=== PATIENT | female | born 1995 | race Hispanic/Latino ===

== ENCOUNTER 2022-07-31 17:28 | Emergency (ER) | payer OTHER ==
--- OUTSIDE RECORDS SUMMARY | 2022-07-31 17:31 | XMS REPORT | Continuity of Care Document ---
:1995 Author Organization [facility] t Address [address] [place] [address] Care Team Providers Name Role Phone Louisa Powell Primary Care Physician [phone] Yusra Brizuela Attending Clinician Problems Condition Condition Condition Status Onset Resolution Last Treating Co mments Source Name Details Category Date Date Treatment Clinician Date Contracept Contracept Disease Active U nivers veronica veronica 8-26 ity of management management [place] [facility] History of History of Disease Active U nivers anemia anemia 3-18 ity of 00:00: Medical Branch Nexplanon Nexplanon Disease Active Overview: Univers in place in place 3-18 Formattin ity of 00:00: g of this 00 note Medical might be Branch different from the original. Inserted 08/06/18 BMI BMI Disease Active 2019- Univers 37.0-37.9, 37.0-37.9, 3-18 it y of adult adult 00:00: [place] [facility] History of History of Disease Active U nivers gestationa gestationa 1-14 it y of l diabetes l diabetes 00:00: [place] [facility] Allergies, Adverse Reactions, Alerts Allergy Allergy Status Severity Reaction(s) Onset Inactive Treating Comm ents Source Name Type Date Date Clinician Penicill Propensi Active Hives Univer s ins ty to 4-08 ity of adverse 00:00: [place] reaction 00 Medical s Branch PENICILL Drug Active Hives Univers INS Class 4-08 ity of 00:00: [place] 00 [facility] Social History Social Habit Start Date Stop Date Quantity Comments Source Exposure to Not sure [facility] SARS-CoV-2 (event) Medica l Branch Alcohol intake 2021-02-13 2021-02-13 0 [facility]d [facility] 00:[facility] 00:00:00 Medical Branch Tobacco use and 2013-08-07 2013-08-07 Never used [facility] exposure 00:00:00 00:00:00 Medical Branch Sex Assigned At [address] [facility] [place] [place] 00:00:00 00:00:00 Medical Branch Smoking Status Start Date Stop Date Source Never smoker [facility] Medications Ordered Filled Start Stop Current Ordering Indication Dosage Frequency Signature Comments Components Source Medication Medication Date Date Medication? Clinician (SIG) Name Name lidocaine 2020- 5mL 5 mL, Univer s 1% 02-13 Infiltrati ity of (XYLOCAINE) 17:45: 16:43 on, ONCE, [place] 10 mg/mL (1 00 :00 1 dose, On Me dical %) Sat Branch injection 5 02/13/21 at mL 1245, RUKHSANA ferrous 2017-05 Yes 325mg Take 1 Univers sulfate 325 2-16 tablet by ity of mg (65 mg 00:00: mouth 2 [place] iron) 00 (two) Medical tablet times Branch daily. ibuprofen 2017-05 Yes 600mg Take 1 Unive rs 600 mg 2-16 tablet by ity of tablet 00:00: mouth [place] 00 every 6 Medical (six) Branch hours as needed for Pain (scale 1-3) or Pain (scale 4-6) (Pain). Take with food or milk. Immunizations Ordered Filled Immunization Date Status Comments Sourc e Immunization Name Name Td 2021-02-13 Completed University of 00:00:00 [facility] MMR 2018-06-04 Completed University of 00:00:00 [facility] TDAP 2018-03-08 Completed University of 00:00:00 [facility] Influenza Virus 2018-03-[address] [facility] [place] [place] Vaccine Quad .5 mL 00:00:00 [facility] IM 6+ MO Branch HPV 2009-07-23 Completed University of 00:00:00 [facility] HPV 2009-03-05 Completed University of 00:00:00 [facility] MMR 2009-02-03 Completed University of 00:00:00 [facility] HPV 2009-01-05 Completed University of 00:00:00 [facility] Tetanus/Diptheria 2006-05-22 Completed Univers ity of 00:00:00 [facility] Vital Signs Vital Name Observation Time Observation Value Comments Source Systolic blood 2021-02-13 16:29:01 143 mm[Hg] Univer sity of pressure [facility] Diastolic blood 2021-02-13 16:29:01 96 mm[Hg] Unive rsity of pressure [facility] Heart rate 2021-02-13 16:29:01 93 /min [facility] Body temperature 2021-02-13 16:29:01 37.56 Gissell [facility] Res[facility] rate 2021-02-13 16:29:01 17 /min [facility] Body weight 2021-02-13 16:20:00 89.812 kg [facility] BMI 2021-02-13 16:20:00 37.41 kg/m2 [facility] Oxygen saturation in 2021-02-13 16:20:00 97 /min [facility] Arterial blood by [facility] Pulse oximetry Branch Procedures Procedure Date / Time Performed Performing Clinician Sourc e XR HAND 3+ VW RIGHT 2021-02-13 16:37:57 Miguel Ghosh [facility] Encounters Start End Encounter Admission Attending Care Care Encounter Source Date/Time Date/Time Type Type Clinicians Facility Department ID 2021-03-[address] [facility] [id number] [facility] 2021-02-13 2021-02-13 [facility] [id number] [facility] 11:23:00 13:32:00 Yusra Miller [id number] i ty [facility] [id number] [facility] [id number] [facility] 084 Branch Results Test Description Test Time Test Comments Results Result Comments Source PAP TEST, THINPREP, IMAGED 2021-11-16 18:12:47 Test Item Value Reference Range Interpretation Comme nts SOURCE: (test code = Cervical/Endocervical 8001) SLIDES: (test code = 1 8011) LMP: (test code = 10/29/2021 8021) SPECIMEN ADEQUACY: (NOTE) Malinda fernandez for (test code = 93569) evaluati on. Endocervical cells/transform ation zone component not i dentified. INTERPRETATION: NILM/NO EPITH. ABNORMALITY;SEE (test code = 79251) BELOW -------- NEGATIVE FOR INTRAEPITHE LIAL LESION OR MALIGNANCY ( NILM) -- OTHER COMMENTS: (NOTE) Shift in toshia ra suggestive of (test code = 8081) bacterial vaginosis. PRESS FEEDER: LION Huff(ASCP) (test code = 8101) LOCATION: (test code (NOTE) Specime ns processed and = 28271) interpreted at [facility], [address] [place] [address], Phone: , CLIA: [id number] CPT: (test code = (NOTE) 54588 UNLE SS OTHERWISE 8140) INDICATED, COMP UTER AIDED AND CYTOTECHNOL OGIST SCREENING PERFO RMED. The Pap test is a scree anselmo test with an inheren t, but low probability of error. Your patient should be reminded to consult you immediately if she experien catrachita any suspicious sign s or symptoms, regar dless of her Pap test result . An alternate repor t format containing imag es or consolidated pr ior Pap history is avai labmilo as applicable. UNL ESS OTHERWISE INDICATED, ALL TESTING PERFORMED [facility] PATHOLOGY [facility]. [address] [place] [address] LABORATOR Y DIRECTOR: DEAN OLMEDO M.D. CLIA NUMBER [id number] CAP ACCREDITATION N O. [id number] CT/NG, TMA, [id number] 18:07:34 Test Item Value Reference Range Interpretation Comments GONORRHEA, TMA NEGATIVE NEGATIVE Assay method ology is (test code = nucleic acid am plification 28571) by transcriptio n mediated amplification ( TMA) utilizing the A ptima Combo 2 Assay. CHLAMYDIA, TMA NEGATIVE NEGATIVE Assay method ology is (test code = nucleic acid am plification 99176) by transcriptio n mediated amplification ( TMA) utilizing the A ptima Combo 2 Assay. VAGINAL PATHOGENS DNA [id number] 09:48:32 Test Item Value Reference Range Interpretation Comments DANIELLE SPECIES (test code = 98878) NEGATIVE NEGATIVE G. VAGINALIS (test code = 79688) POSITIVE NEGATIVE A T. VAGINALIS (test code = 10281) NEGATIVE NEGATIVE HIV 1/2 4TH GEN, RFLX [id number] 03:19:15 Test Item Value Reference Range Interpretation Comments HIV 1/2 4TH GEN, RFLX CONF (test NON-REACTIVE NON-REACTIVE code = 3514) HEPATITIS PANEL, [id number] 03:19:15 Test Item Value Reference Range Interpretation Comments HEPATITIS A IgM (test NON-REACTIVE NON-REACTIVE code = 35134) HEPATITIS B CORE IgM NON-REACTIVE NON-REACTIVE (test code = 4644) HEPATITIS B SURF AG NON-REACTIVE NON-REACTIVE (test code = 2739) HEPATITIS C ANTIBODY NON-REACTIVE NON-REACTIVE (test code = 4675) INTERPRETATION (NOTE) Hepatitis A HEPATITIS A: (test code sero logy shows no = 2552) evidence of acu te hepatitis A. INTERPRETATION (NOTE) Hepatitis B HEPATITIS B: (test code sero logy shows no = 08018) evidence of acu te hepatitis B and no indication of exposure to hepatitis B vir us in the previous german eight months. INTERPRETATION (NOTE) Hepatitis C HEPATITIS C: (test code sero logy shows no = 75317) evidence of exposure to hepatitisC viru s at this time. I t can take up to 12 months after exposure tothe hepatitis C vir us for antibodies to become detectab le in the blood in certain patient s. [id number] 22:40:41 Test Item Value Reference Range Interpretation Comments RPR RESULT (test code = NON-REACTIVE NON-REACTIVE 3501) RPR TITER (test code = 3500) NOT INDIC. TITER NOT INDIC. LIPID [id number] 03:30:38 Test Item Value Reference Range Interpretation Comments CHOLESTEROL (test 144 MG/DL <200 code = 2210) TRIGLYCERIDES (test 246 MG/DL <150 H code = 2232) HDL CHOLESTEROL (test 32 MG/DL >39 L code = 2220) CALC LDL CHOL (test 78 MG/DL <100 NOTE: C ALCULATED LDL code = 2237) IS BASED ON JAN-ZARATE METHOD WHICHINCLUDES ADJUSTABLE TRIGLYCERIDE:VL DL CHOLESTEROL RAT IO.THIS FACTOR VARIES B Y MEASURED TRIGLY CERIDE AND NON-HDLCHOL ESTEROL CONCENTRATIONS WITH INCREASED CALCU LATED LDL SEENIN HIGH ER TRIGLYCERIDE OR LOWER NON-HDL SPECIME NS. FOR MOREINFORMATION , SEE CLIENT ANNOUNCE MENT AT [email or web address] RATIO LDL/HDL 2.44 RATIO <3.22 (test code = 2238) COMPREHENSIVE METABOLIC [id number] 03:30:38 Test Item Value Reference Range Interpretation Comments GLUCOSE (test code = 133 MG/DL 70-99 H 2216) BUN (test code = 10 MG/DL 6-20 2207) CREATININE (test 0.46 MG/DL 0.60-1.30 L code = 2214) eGFR (2020 CKD-EPI) 134 >60 (test code = 53667) ML/MIN/1.73 CALC BUN/CREAT (test 22 RATIO 6-28 code = 2235) SODIUM (test code = 138 MEQ/L 727-169 5559) POTASSIUM (test code 4.0 MEQ/L 3.5-5.4 = 2227) CHLORIDE (test code 101 MEQ/L 95-107 = 2215) CARBON DIOXIDE (test 21 MEQ/L 19-31 code = 2206) CALCIUM (test code = 8.8 MG/DL 8.5-10.5 2208) PROTEIN, TOTAL (test 6.7 G/DL 6.1-8.3 code = 222) ALBUMIN (test code = 4.1 G/DL 3.5-5.2 2200) CALC GLOBULIN (test 2.6 G/DL 1.9-3.7 code = 2240) CALC A/G RATIO (test 1.6 RATIO 1.0-2.6 code = 2234) BILIRUBIN, TOTAL 0.3 MG/DL See_Comment [Automated message] (test code = 2207) The syste m which generated this result transmit leah reference range : <=1.2. The refe rence range was not u sed to interpret th is result as normal/abnormal . ALKALINE PHOSPHATASE 71 U/L 40-112 (test code = 2204) AST (test code = 26 U/L 9-40 8) ALT (test code = 26 U/L 5-40 2218) TSH, THIRD [id number] 01:35:45 Test Item Value Reference Range Interpretation Comments TSH, THIRD 0.262 UIU/ML 0.400-4.100 L UNLESS OTHERWI SE GENERATION (test INDICATED, ALL TESTING code = 2821) PERFORMED [facility], [id number] [place] [address] DIRECTOR: DEAN MEJIA M.D. CLIA NUMBER [id number] CAP ACCREDITATION N O. [id number] CBC W/AUTO DIFF WITH [id number] 04:52:50 Test Item Value Reference Range Interpretation Comments WBC (test code = 6.5 K/UL 3.5-11.0 1001) RBC (test code = 4.03 M/UL 3.80-5.40 1002) HEMOGLOBIN (test code 12.4 G/DL 11.5-15.5 = 1003) HEMATOCRIT (test code 36.1 % 34.0-45.0 = 1004) MCV (test code = 89.6 fL 80.0-99.0 1005) MCH (test code = 30.8 PG 25.0-33.0 1006) MCHC (test code = 34.3 G/DL 31.0-36.0 1007) RDW (test code = 12.9 % 11.5-15.0 1038) NEUTROPHILS (test 65.7 % code = 1008) LYMPHOCYTES (test 25.0 % code = 1010) MONOCYTES (test code 4.6 % = 1011) EOSINOPHILS (test 3.9 % code = 1012) BASOPHILS (test code 0.5 % = 1013) IMMATURE GRANULOCYTES 0.3 % (test code = 1036) NUCLEATED RBCS (test 0.0 /100 WBC'S See_Comment [Aut omated code = 1065) message] The sy stem which generated this result transmitted reference range : 0.0. The refere nce range was not u sed to interpret th is result as normal/abnormal . PLATELET COUNT (test 196 K/UL 130-400 code = 1015) ABSOLUTE NEUTROPHILS 4.27 K/UL 1.50-7.50 (test code = 1066) ABSOLUTE LYMPHOCYTES 1.62 K/UL 1.00-4.00 (test code = 1067) ABSOLUTE MONOCYTES 0.30 K/UL 0.20-1.00 (test code = 1068) ABSOLUTE EOSINOPHILS 0.25 K/UL 0.00-0.50 (test code = 1040) ABSOLUTE BASOPHILS 0.03 K/UL 0.00-0.20 (test code = 1069) ABS IMMATURE 0.02 K/UL 0.00-0.10 GRANULOCYTES (test code = 1020) ABS NUCLEATED RBCS 0.00 K/UL 0.00-0.11 (test code = 52046) SARS-CoV-2 (COVID-19), RT-PCR/[id number] 15:36:24 Test Item Value Reference Interpretation Comments Range SARS-CoV-2 POSITIVE SEE NOTE A SARS-CoV-2 RNA INTERPRETATION DETECTEDPosit veronica results (test code = are indicative of the [address]) presence of ESRDAS S-CoV-2 RNA;clinical co rrelation with patient hi story and other diagnosticinfor mation is necessary to de termine patient infecti on status.Positive results do not rule out bacterial infec tion or co-infectionwit h other viruses. Positi ve and negative predic tive values oftestin g are highly dependen t on prevalence. SOURCE (test code NASOPHARYNGEAL Note: M ethodology is = 18759) Goldie Jass Loida l-Time RT-PCR. The exp ected result or refer ence range is NEGATI VE (Not Detected). For more information reg arding COVID-19 testin g to include clinicalinforma tion, methodology det ail, intended use, F DA authorization andrecommended fact sheets for gerard ents or healthcare prov iders, see NewTest Announcement: S ARS-CoV-2 (COVID-19) by N AAT at URL below (note ,fact sheets are prov ided by method given in report:[email or web address] / Alternatively, see downloadable PD F fact sheet at:[email or web address]. [email or web address] [email or web address]- PCR UNLESS OTHERWIS E INDICATED, ALL TESTING PERFORMED [facility] PATHOLOGY LABOR [facility] [address] [place] [address] 4 LABORATORY DIRE CTOR: DEAN OLMEDO M.D. CLIA NUMBER [id number] [facility] [place] [id number]
--- NOTE | 2022-07-31 18:57 | RAD REPORT ---
EXAM DESCRIPTION: CT - CTHCSPWOC - 07/31/2022 6:48 pm CLINICAL HISTORY: Trauma, head and neck injury. fall, head injury, neck pain COMPARISON: No comparisons TECHNIQUE: Axial 5 mm thick images of the head were obtained. Axial 2 mm thick images of the cervical spine were obtained with sagittal and coronal reconstruction images generated and reviewed. All CT scans are performed using dose optimization technique as appropriate and may include automated exposure control or mA/KV adjustment according to patient size. FINDINGS: CT HEAD WITHOUT CONTRAST: No acute hemorrhage, hydrocephalus or extra-axial collection is identified.No areas of brain edema or midline shift. The paranasal sinuses and mastoids are clear.The calvarium is intact. CT CERVICAL SPINE WITHOUT CONTRAST: No fracture or subluxation.No prevertebral soft tissues swelling is identified. IMPRESSION: No acute intracranial or cervical spine findings.
--- NOTE | 2022-07-31 19:33 | RAD REPORT ---
EXAM DESCRIPTION: RAD - Lumbar Spine 3 Views - 07/31/2022 7:29 pm CLINICAL HISTORY: fall, tubal ligation Radiculopathy COMPARISON: No comparisons FINDINGS: Vertebral body heights appear maintained. No compression fracture noted. Disc spaces are m aintained. No spondylolysis or spondylolisthesis. IMPRESSION: Negative study.
--- NOTE | 2022-07-31 19:34 | RAD REPORT ---
EXAM DESCRIPTION: RAD - Ankle Left 3 View - 07/31/2022 7:29 pm CLINICAL HISTORY: fall COMPARISON: No comparisons FINDINGS: No acute fracture or dislocation is seen. Small calcaneal spurs.
--- NOTE | 2022-07-31 19:35 | RAD REPORT ---
EXAM DESCRIPTION: RAD - Tib Fib Left - 07/31/2022 7:29 pm CLINICAL HISTORY: fall COMPARISON: No comparisons FINDINGS: No fracture or dislocation seen.
[2022-07-31] MEDS ORDERED: KETOROLAC 30 MG/ML INJ ONE (20:16)
[2022-07-31 21:19] VITALS: TEMP 97.1
[2022-07-31 21:20] VITALS: BP 138/89; O2SAT 98
--- NOTE | 2022-08-12 16:58 | EDPHYS ---
[facility]: Jeanne Amado Age: 27 yrs Sex: Female : 1995 Arrival Date: 07/31/2022 Time: 17:29 Bed DIS4 Private MD: ED Physician Mat Garcia HPI: 07/31 18:00 This 27 yrs old Female presents to ER via Wheelchair with complaints of Ankle jmm Injury, Fall Injury, Back Pain, head pain. 18:00 The patient presents with an injury, pain. Is a 27-year-old female with history of jmm hyperlipidemia the presents emerged part with complaints of headache, neck pain, lower back pain and left lower leg and ankle pain following a fall which occurred just prior to arrival. Patient states that she slipped on vomit. Falling backwards hitting the back of her head. Denies loss consciousness.. Historical: - Allergies: 18:02 No Known Allergies; kr3 - PMHx: 18:02 Hypercholesterolemia; kr3 - PSHx: 18:02 section; kr3 18:04 Ligation of fallopian tube; kr3 - Immunization history:: Adult Immunizations not up to date. - Social history:: Smoking status: Patient denies any tobacco usage or history of. ROS: 18:00 Constitutional: Negative for fever, chills, and weight loss, Cardiovascular: Negative jmm for chest pain, palpitations, and edema, Respiratory: Negative for shortness of breath, cough, wheezing, and pleuritic chest pain. 18:00 MS/extremity: Positive for pain. 18:00 All other systems are negative. Exam: 18:00 Constitutional: This is a well developed, well nourished patient who is awake, alert, jmm and in no acute distress. 18:00 Chest/axilla: Normal chest wall appearance and motion. Cardiovascular: Regular rate and rhythm. No edema appreciated Respiratory: Normal respirations, no respiratory distress appreciated Abdomen/GI: Non distended Back: Normal ROM Skin: General appearance color normal 18:00 Neuro: Awake and alert Psych: Behavior is normal, Mood is normal, Patient is cooperative and pleasant 18:00 Head/face: Noted is tenderness, that is mild, of the left base of the skull and right base of the skull. 18:00 Neck: C-spine: vertebral tenderness, that is mild, appreciated at C1, C2 and C3. 18:00 Back: pain, that is mild, of the lumbar area. 18:00 Musculoskeletal/extremity: Left lateral ankle is tender to palpation, compartments are soft, full dorsalis pedis pulse, neurovascular intact.. Vital Signs: 17:58 BP 147 / 106; Pulse 83; Resp 18; Temp 97.1; Pulse Ox 96% on R/A; Weight 90.72 kg; kr3 Height 5 ft. 1 in. ; Pain 7/10; 21:02 BP 138 / 89; Pulse 88; Resp 17; Pulse Ox 98% ; mb9 17:58 Body Mass Index 37.79 (90.72 kg, 154.94 cm) kr3 17:58 Pain Scale: Adult kr3 MDM: 18:00 Patient medically screened. [facility] 19:56 Differential diagnosis: Sprain acute head injury, intracranial hemorrhage, skull jmm fracture, cervical fracture, strain. Data reviewed: vital signs, nurses notes, radiologic studies. Independent interpretation of the following test(s) in the Emergency Department X-Ray: My interpretation is No fracture appreciated. Counseling: I had a detailed discussion with the patient and/or guardian regarding: the historical points, exam findings, and any diagnostic results supporting the discharge/admit diagnosis, radiology results, the need for outpatient follow up, to return to the emergency department if symptoms worsen or persist or if there are any questions or concerns that arise at home. 0312 18:01 Order name: CT Head C Spine; Complete Time: 18:58 [facility] 07/31 18:01 Order name: Ankle Left 3 View XRAY; Complete Time: 19:46 [facility] 07/31 18:01 Order name: Lumbar Spine (3 Views) XRAY; Complete Time: 19:46 [facility] 07/31 18:01 Order name: Tib Fib Left XRAY; Complete Time: 19:46 [facility] 07/31 19:56 Order name: Yvon wrap-joint; Complete Time: 21:01 [facility] 07/31 19:56 Order name: Crutches; Complete Time: 21:01 [facility] Administered Medications: 20:36 Drug: Ketorolac IM 30 mg Route: IM; Site: left deltoid; mb9 20:37 Follow up: Response: No adverse reaction mb9 Disposition: 19:09 Co-signature as Attending Physician, Mat Garcia MD I reviewed the patient's care rt provided by the Advanced Practice Provider and agree with the diagnosis and treatment plan. Disposition Summary: 07/31/22 19:58 Discharge Ordered Location: Home jmm Condition: Stable jmm Diagnosis - Unspecified injury of head, initial encounter jmm - Sprain of ankle jmm - Strain of muscle, fascia and tendon at neck level jmm - Strain of muscle, fascia and tendon of lower back jmm Followup: [facility] - With: Jesus Ward MD - When: 2 - 3 days - Reason: Recheck today's complaints, Continuance of care, Re-evaluation by your physician Discharge Instructions: - Discharge Summary Sheet jmm - Ankle Sprain jmm - Head Injury, Adult jmm - Cervical Strain and Sprain Rehab-SportsMed jmm - Low Back Sprain or Strain Rehab [facility] Forms: - Medication Reconciliation Form [facility] - Thank You Letter jmm - Antibiotic Education jmm - Prescription Opioid Use [facility] Prescriptions: - Zanaflex 4 mg Oral Tablet - take 1 tablet by ORAL route every 8 hours As needed; 20 tablet; Refills: 0, [facility] Product Selection Permitted - Diclofenac Sodium 75 mg Oral Tablet Sustained Release - take 1 tablet by ORAL route 2 times per day; 30 tablet; Refills: 0, Product [facility] Selection Permitted Addendum: 08/05/2022 08:02 Co-signature as Attending Physician, Mat Garcia MD I reviewed the patient's care r t provided by the Advanced Practice Provider and agree with the diagnosis and treatment plan. Signatures: Dispatcher [employer] EDJeison Conner PA PA jmm Reid, Kelley, RN RN kr3 Mary Anne Nunez RN RN mb9 Mat Garcia MD MD rt
--- NOTE | 2022-08-12 16:58 | ER ---
Nurse's Notes [facility] Name: Jeanne Amado Age: 27 yrs Sex: Female : 1995 Arrival Date: 07/31/2022 Time: 17:29 Bed DIS4 Private MD: Diagnosis: Unspecified injury of head, initial encounter;Sprain of ankle;Strain of muscle, fascia and tendon at neck level;Strain of muscle, fascia and tendon of lower back Presentation: 07/31 17:58 Chief complaint: Patient states: I was [place] and slipped in someone else's throw kr3 up and fell and twisted my knee and ankle then fell backwards and hit my back and head. Coronavirus screen: Vaccine status: Patient reports being unvaccinated. Ebola Screen: Patient denies travel to an Ebola-affected area in the 21 days before illness onset. Initial Sepsis Screen: Does the patient meet any 2 criteria? No. Patient's initial sepsis screen is negative. Does the patient have a suspected source of infection? No. Patient's initial sepsis screen is negative. 17:58 Method Of Arrival: Wheelchair kr3 Triage Assessment: 18:04 General: Appears in no apparent distress. comfortable, Behavior is calm, cooperative. kr3 Pain: Complains of pain in left elbow. Historical: - Allergies: 18:02 No Known Allergies; kr3 - PMHx: 18:02 Hypercholesterolemia; kr3 - PSHx: 18:02 section; kr3 18:04 Ligation of fallopian tube; kr3 - Immunization history:: Adult Immunizations not up to date. - Social history:: Smoking status: Patient denies any tobacco usage or history of. Assessment: 20:20 Reassessment: No changes from previously documented assessment. Patient and/or family mb9 updated on plan of care and expected duration. Pain level reassessed. Patient is alert, oriented x 3, equal unlabored respirations, skin warm/dry/pink. Vital Signs: 17:58 BP 147 / 106; Pulse 83; Resp 18; Temp 97.1; Pulse Ox 96% on R/A; Weight 90.72 kg; kr3 Height 5 ft. 1 in. ; Pain 7/10; 21:02 BP 138 / 89; Pulse 88; Resp 17; Pulse Ox 98% ; mb9 17:58 Body Mass Index 37.79 (90.72 kg, 154.94 cm) kr3 17:58 Pain Scale: Adult kr3 ED Course: 17:29 Patient arrived in ED. am2 17:32 Jeison Thayer PA is PHCP. [facility] 17:32 Mat Garcia MD is Attending Physician. jmm 18:05 Arm band placed on left wrist. kr3 18:50 CT Head C Spine In Process Unspecified. EDMS 19:31 Ankle Left 3 View XRAY In Process Unspecified. EDMS 19:31 Lumbar Spine (3 Views) XRAY In Process Unspecified. EDMS 19:31 Tib Fib Left XRAY In Process Unspecified. EDMS 19:57 Jesus Ward MD is Referral Physician. m 21:02 Patient did not have IV access during this emergency room visit. mb9 Administered Medications: 20:36 Drug: Ketorolac IM 30 mg Route: IM; Site: left deltoid; mb9 20:37 Follow up: Response: No adverse reaction mb9 Outcome: 19:58 Discharge ordered by MD. [facility] 20:15 Discharged to home with crutches. mb9 20:15 Condition: stable 20:15 Discharge instructions given to patient, Instructed on discharge instructions, follow up and referral plans. Demonstrated understanding of instructions, follow-up care, medications, Prescriptions given X 2. 21:02 Patient left the ED. mb9 Signatures: Dispatcher [employer] EDJeison Conner PA PA jmm Moreno, Amanda am2 Agata Rivera RN RN kr3 Mary Anne Nunez RN RN mb9
== END 2022-07-31 21:02 | disposition home or self-care (01) ==
LOC: ER 17:28
DX: S09.90XA Unspecified injury of head, initial encounter (principal); S93.402A Sprain of unspecified ligament of left ankle, initial encounter; S16.1XXA Strain of muscle, fascia and tendon at neck level, initial encounter; S39.012A Strain of muscle, fascia and tendon of lower back, initial encounter
CPT/HCPCS: 70450; 72100; 72125; 96372; 99283